=== PATIENT | female | born 1950 | race Caucasian/White ===

== ENCOUNTER 2019-05-24 17:17 | Emergency (ER) | payer BC ==
[2019-05-24 17:32] VITALS: TEMP 98.2; BMI 21.7
--- NOTE | 2019-05-24 17:34 | PDOC ---
Rapid Medical Evaluation Chief Complaint: Irregular Heart Beat Time Seen by Provider: 05/24/19 17:30 Medical Evaluation: Allergies Allergy/AdvReac Type Severity Reaction Status Date / Time No Known Allergies Allergy Verified 05/24/19 17:28 05/24/19 17:30 This patient received a in-person evaluation in triage cc/HPI:sent to pmd for further evaluation of new arrhythmia reports going to doctor for check up and sent to ed for evaluation of new onset bigeminy PE: NAD unlabored breathing heart s1s2 orders:ekg ordered This patient will proceed to ED for further evaluation 05/24/19 17:33 Discharge Disposition - Diagnosis Bigeminy - Discharge Dispostion Disposition: HOME Condition at time of disposition: Good - Referrals Referrals: Gregorio Louise MD [Staff Physician] - - Patient Instructions Printed Discharge Instructions: DI for Arrhythmias Additional Instructions: You were seen and evaluated in the ED for new EKG changes. You were found to have normal thyroid function and troponin (heart enzymes). Please call Dr. Guo's office first thing tomorrow morning and ask for an appointment with their affiliated check inspector for outpatient follow-up. If they are unable to arrange this, please call the check inspector listed under the referrals section of this packet to arrange an appointment in the next several days. Return to the ED if you develop any new or concerning symptoms including but not limited to: chest pain or tightness, shortness of breath, a fast heart rate / palpitations as these may require further evaluation and hospital admission. - Post Discharge Activity
[2019-05-24 18:12] LABS: BASO % 1.1 % (0-2.0); HEMATOCRIT 43.3 % (32.4-45.2); HEMOGLOBIN 14.7 GM/dL (10.7-15.3); LYMPH % 27.1 % (8-40); MEAN CELL VOLUME 88.2 fl (80-96); MEAN PLT VOLUME 9.1 fl (7.5-11.1); MONO % 8.1 % (3.8-10.2); NEUT % 62.7 % (42.8-82.8); PLATELET COUNT 145 K/MM3 (134-434); RBC 4.91 M/mm3 (3.60-5.2); RDW 13.1 % (11.6-15.6); WHITE BLOOD COUNT 7.3 K/mm3 (4.0-10.0)
[2019-05-24 18:27] LABS: INR 0.95 (0.83-1.09); PROTHROMBIN TIME (PATIENT) 11.2 SEC (9.7-13.0)
[2019-05-24 18:30] LABS: ACTIVATED PTT 35.3 SECONDS (25.2-36.5)
[2019-05-24 18:52] LABS: ALBUMIN 3.9 g/dl (3.4-5.0); BILIRUBIN,TOTAL 0.7 mg/dL (0.2-1); BLOOD UREA NITROGEN 21.2 mg/dL (7-18); CALCIUM 9.5 mg/dL (8.5-10.1); CREATININE 0.6 mg/dL (0.55-1.3); MAGNESIUM 2.1 mg/dL (1.8-2.4); POTASSIUM 4.1 mmol/L (3.5-5.1); TOT PROT 6.9 g/dl (6.4-8.2)
--- NOTE | 2019-05-24 18:57 | PDOC ---
History of Present Illness - General Chief Complaint: Irregular Heart Beat Stated Complaint: SENT BY DR YING Time Seen by Provider: 05/24/19 17:30 History Source: Patient Exam Limitations: No Limitations - History of Present Illness Initial Comments: 05/24/19 18:57 PCP: Dr. Ying HPI: 68yo F with PMH DM, HTN, HLD presenting from PCP's office with new bigeminy on EKG. Patient has received serial EKGs / thyroid levels for history of nodules, today an irregular HR was observed during routine exam and a subsequent EKG demonstrated ventricular bigeminy. Patient denies ANY symptoms or anything bothering her. Specifically, no CP, SOB, palpitations, chest tightness, edema, or exertional dyspnea. No prior cardiac history, no plate worker. All: NKDA Meds: Metoprolol, Dapagliflozin, Statin PMH: As above PSH: Denies Past History - Past Medical History Allergies/Adverse Reactions: Allergies Allergy/AdvReac Type Severity Reaction Status Date / Time No Known Allergies Allergy Verified 05/24/19 17:28 Home Medications: Ambulatory Orders Dapagliflozin Propanediol [Farxiga] 5 mg PO DAILY 05/24/19 Metoprolol Succinate [Toprol Xl -] 25 mg PO DAILY 05/24/19 Rosuvastatin [Crestor -] 10 mg PO HS 05/24/19 COPD: No Diabetes: Yes HTN: Yes Hypercholesterolemia: Yes Thyroid Disease: Yes - Immunization History Immunization Up to Date: Yes - Psycho Social/Smoking Cessation Hx Smoking History: Never smoked Information on smoking cessation initiated: No Hx Alcohol Use: No Drug/Substance Use Hx: No Review of Systems - Review of Systems Able to Perform ROS?: Yes Is the patient limited Chinese proficient: Yes Constitutional: No: Chills, Diaphoresis, Fever, Weakness HEENTM: No: Recent change in vision, Nose Congestion, Hearing Loss, Throat Pain Respiratory: No: Cough, Shortness of Breath, Wheezing Cardiac (ROS): No: Chest Pain, Edema, Irregular Heart Rate, Lightheadedness, Palpitations, Syncope, Chest Tightness ABD/GI: No: Constipated, Diarrhea, Nausea, Vomiting : No: Burning, Dysuria, Discharge Musculoskeletal: No: Muscle Pain, Muscle Weakness, Neck Pain Integumentary: No: Bruising, Dryness, Erythema Neurological: No: Headache, Numbness, Tingling, Weakness Psychiatric: No: Anxiety, Depression Endocrine: No: Excessive Sweating, Flushing, Intolerance to Cold, Increased Thirst, Increased Urine, Change in Weight Hematologic/Lymphatic: No: Anemia, Blood Clots All Other Systems: Reviewed and Negative *Physical Exam - Vital Signs Last Vital Signs Temp Pulse Resp BP Pulse Ox 98.2 F 154 H 16 154/70 98 05/24/19 17:29 05/24/19 17:29 05/24/19 17:29 05/24/19 17:29 05/24/19 17:29 - Physical Exam 05/24/19 18:53 Vitals reviewed, HR in 80s, AFHDS WDWN woman in no acute distress Normal morphologies, atraumatic, EOMI, MMM Irregular rhythm - Bigemony on the monitor, normal s1/s2, no murmurs appreciated CTABL, normal work of breathing, no wheezes / rales / rhonchi Soft, non-tender, non-distended 2+ radial and PT pulses WWP, no clubbing / cyanosis / edema CN grossly intact, normal sensation ED Treatment Course - LABORATORY CBC & Chemistry Diagram: 05/24/19 18:00 05/24/19 18:00 - ADDITIONAL ORDERS Additional order review: Laboratory Results 05/24/19 18:00 PT with INR 11.20 INR 0.95 PTT (Actin FS) 35.3 05/24/19 18:00 RBC 4.91 MCV 88.2 MCHC 34.0 RDW 13.1 MPV 9.1 Neutrophils % 62.7 Lymphocytes % 27.1 Monocytes % 8.1 D Eosinophils % 1.0 Basophils % 1.1 Medical Decision Making - Medical Decision Making 05/24/19 19:03 68yo F PMH DM, HTN, HLD presenting with new onset bigeminy. History notable for no complaints, new onset bigeminy in a patient with serial EKGs on record at PCP for thyroid monitoring. Exam notable for irregular rhythm, otherwise normal. - CBC, CMP, Troponin, TSH - EKG demonstrating bigeminy, 87bpm, normal axis, normal intervals, no ischemic changes apparent - Call placed to plate worker Dr. Louise - Patient is stable without any focal complaints, disposition pending cardiology discussion - 0.47 TSH, negative troponin, CBC and CMP unremarkable 05/24/19 19:39 -Spoke with Dr. Saunders. No indiction for admission for isolated new onset bigeminy with negative troponin, normal rate, and no symptoms Plan for patient to call Dr. Ying's office tomorrow to meet with his plate worker as an outpatient. Dispo: Home Discharge - Discharge Information Problems reviewed: Yes Clinical Impression/Diagnosis: Bigeminy Condition: Good Disposition: HOME - Admission No - Follow up/Referral Referrals: Gregorio Louise MD [Staff Physician] - - Patient Discharge Instructions Patient Printed Discharge Instructions: DI for Arrhythmias Additional Instructions: You were seen and evaluated in the ED for new EKG changes. You were found to have normal thyroid function and troponin (heart enzymes). Please call Dr. Ying's office first thing tomorrow morning and ask for an appointment with their affiliated plate worker for outpatient follow-up. If they are unable to arrange this, please call the plate worker listed under the referrals section of this packet to arrange an appointment in the next several days. Return to the ED if you develop any new or concerning symptoms including but not limited to: chest pain or tightness, shortness of breath, a fast heart rate / palpitations as these may require further evaluation and hospital admission. - Post Discharge Activity
--- NOTE | 2019-05-24 19:54 | PDOC ---
Documentation entered by Luba Harris SCRIBE, acting as scribe for Karen Craven MD. Karen Craven MD: This documentation has been prepared by the Kimberly banuelos Brenda, SCRIBE, under my direction and personally reviewed by me in its entirety. I confirm that the documentation accurately reflects all work, treatment, procedures, and medical decision making performed by me. Attending Attestation - Resident Resident Name: LamineNeo - ED Attending Attestation I have performed the following: I have examined & evaluated the patient, The case was reviewed & discussed with the resident, I agree w/resident's findings & plan, Exceptions are as noted - HPI HPI: 05/24/19 18:56 The patient is a 68 year old female, with a significant PMH of DM, HTN, HLD who presents to the emergency department, sent by her PMD. Patient reports going to PMD for further evaluation of acute arrhythmia, and was sent to the ED for a new onset of bigeminy on EKG. Patient reports no symptoms. The patient denies chest pain, shortness of breath, headache and dizziness. Denies fever, chills, nausea, vomiting, diarrhea and constipation. Denies dysuria, frequency, urgency and hematuria. Allergies: NKA - Physicial Exam PE: 05/24/19 19:53 I agree with the resident's physical exam 05/25/19 02:12 - Medical Decision Making 05/24/19 19:54 68-year-old female sent in from her doctor's office and found to be in bigeminy and rate of 87 bpm Patient is totally asymptomatic she has no shortness of breath or chest pain nausea vomiting or exertional dyspnea Labs are reviewed and essentially unremarkable Case discussed with Dr. Saunders who agrees with discharge and follow-up with her PCP and their podiatrist assistant 05/25/19 02:12
[2019-05-24 20:02] VITALS: BP 134/91; PULSE 87
--- NOTE | 2019-05-25 09:45 | EKG ---
Test Reason : Blood Pressure : / mmHG Vent. Rate : 087 BPM Atrial Rate : 087 BPM P-R Int : 140 ms QRS Dur : 086 ms QT Int : 400 ms P-R-T Axes : 054 052 030 degrees QTc Int : 481 ms SINUS RHYTHM WITH FREQUENT PREMATURE VENTRICULAR COMPLEXES IN A PATTERN OF BIGEMINY POSSIBLE LEFT ATRIAL ENLARGEMENT NONSPECIFIC ST AND T WAVE ABNORMALITY ABNORMAL ECG NO PREVIOUS ECGS AVAILABLE Confirmed by MD Chip, Kennedy ([id number]) on 05/25/2019 9:45:14 AM Referred By: Confirmed By:Kennedy Saunders MD
== END 2019-05-24 20:07 | disposition home or self-care (01) ==
LOC: JER 17:17
DX: R00.8 Other abnormalities of heart beat (principal); I10 Essential (primary) hypertension; E78.5 Hyperlipidemia, unspecified; E11.9 Type 2 diabetes mellitus without complications; E78.00 Pure hypercholesterolemia, unspecified; E07.9 Disorder of thyroid, unspecified
CPT/HCPCS: 36415; 80053; 83735; 84443; 84484; 85025; 85610; 85730; 93005; 93010; 99284-25